=== PATIENT | female | born 1995 | race Caucasian/White ===

== ENCOUNTER 2024-03-28 19:28 | Outpatient (CLI) | payer OTHER, SELFPAY | END 2024-03-28 19:29 | disposition home or self-care (01) | PROVIDERS: Visit Provider Emergency Medicine | DX: R06.09 Other forms of dyspnea (principal); R22.0 Localized swelling, mass and lump, head; T50.905A Adverse effect of unspecified drugs, medicaments and biological substances, initial encounter; Y92.531 Health care provider office as the place of occurrence of the external cause | CPT/HCPCS: A0425; A0427 ==

== ENCOUNTER 2024-03-28 19:43 | Emergency (ER) | payer OTHER, SELFPAY ==
[2024-03-28] VITALS (24 sets, daily range): BP systolic 99–109; BP diastolic 50–61; PULSE 72–91; RESP 16–20; TEMP 36.5; O2SAT 95–100; BMI 19.8
[2024-03-28] MEDS: predniSONE 20 MG TABLET 60 MG PO (20:24)
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
[2024-03-28 21:46] LABS: Basophils Percent Auto 0.1 % (0.0-3.0); Eosinophils Percent Auto 0.1 % (0.0-7.0); Hematocrit 37.6 % (33.0-51.0); Immature Granulocytes Pct Auto 0.1 %; Lymphocytes Percent Auto 1.9 % (20-44); Mean Corpuscular HGB Conc 32 gm/dL (32-36); Mean Corpuscular Hemoglobin 27 pg (26-34); Mean Corpuscular Volume 85 fL (80-100); Monocytes Percent Auto 1.9 % (0.0-11.0); Neutrophils Percent Auto 95.9 % (42.0-72.0); Platelet Count* 212 K/uL (140-440); RDW Coefficient of Variation % 13.1 % (11.5-15.5); Red Blood Count 4.41 m/uL (4.00-5.20); White Blood Count* 14.43 K/uL (4.50-11.00)
[2024-03-28] MEDS: 0.9 % SODIUM CHLORIDE 1000 ml 1,000 ML IV (21:47)
[2024-03-28] MEDS: diphenhydrAMINE 50 MG/ML inj 25 MG IVP (21:54)
[2024-03-28] MEDS: KETOROLAC 15 MG/ML inj IVP (21:54)
[2024-03-28 21:58] LABS: Chloride* 106 mmol/L (96-114); Potassium* 3.9 mmol/L (3.6-5.1); Sodium* 137 mmol/L (135-149)
[2024-03-28 22:01] LABS: Anion Gap 6 mEq/L (7-15); Blood Urea Nitrogen* 16 mg/dL (5-24); Carbon Dioxide* 25 mmol/L (20-32); Estimated Glomerular Filt Rate 80 ml/min; Glucose* 119 mg/dL (60-115); Slide Review Reflex No
[2024-03-28 22:02] LABS: Calcium* 8.3 mg/dL (8.4-10.6)
[2024-03-28 22:04] LABS: C Reactive Protein* 1.9 mg/dL (0.5-1.0)
[2024-03-28 22:36] LABS: Erythrocyte SedimentationRate* 7 mm/hr (2-20)
[2024-03-29] VITALS: PULSE 91; O2SAT 96
== END 2024-03-29 00:20 | disposition home or self-care (01) ==
PROVIDERS: Emergency Provider Emergency Medicine
DX: R21 Rash and other nonspecific skin eruption (principal); T36.8X5A Adverse effect of other systemic antibiotics, initial encounter
CPT/HCPCS: 36415; 80048; 85025; 85651; 86140; 94761; 96374; 96375; 99282; 99284; J1200; J1885; J7030; J7512